=== PATIENT | female | born 1960 | race Caucasian/White ===

== ENCOUNTER 2019-04-20 10:32 | Emergency (ER) | payer OTHER ==
[~2019-04-20] VITALS: Ht 160 cm; Wt 76.7 kg
[2019-04-20 10:39] VITALS: Ht 160 cm; Wt 76.7 kg
[2019-04-20 12:28] LABS: BASOPHIL % 0.4 % (0-2); CARBON DIOXIDE 28.9 mmol/L (21-32); CHLORIDE SERUM 106 mmol/L (98-107); CREATININE SERUM 0.7 mg/dL (0.6-1.0); GFR1 > 60 mL/min; GLUCOSE SERUM 104 mg/dL (74-106); PLATELET COUNT 261 x10^3mcL (130-400); POTASSIUM SERUM 4.6 mmol/L (3.5-5.1); RED CELL DISTRIBUTION WIDTH 14.3 % (11.5-14.5); SODIUM SERUM 140 mmol/L (136-145)
[2019-04-20 12:32] LABS: ALBUMIN 3.4 g/dL (3.4-5.0); ALKALINE PHOSPHATASE 96 U/L (46-116); ALT/SGPT 32 U/L (14-59); AST/SGOT 19 U/L (15-37); BILIRUBIN TOTAL 0.21 mg/dL (0.20-1.00); LIPASE 108 IU/L (73-393)
[2019-04-20 15:26] VITALS: BP 116/74
== END 2019-04-20 15:26 | disposition home or self-care (01) ==
LOC: ED 10:32
PROVIDERS: Emergency Medicine
DX: K21.9 Gastro-esophageal reflux disease without esophagitis (principal); K57.90 Diverticulosis of intestine, part unspecified, without perforation or abscess without bleeding; K44.9 Diaphragmatic hernia without obstruction or gangrene; Z98.890 Other specified postprocedural states
CPT/HCPCS: C9113; J2405; J7030; Q0092

== ENCOUNTER 2020-05-09 15:48 | Emergency (ER) | payer OTHER ==
[~2020-05-09] VITALS: Ht 152.4 cm; Wt 76.7 kg
[2020-05-09 16:03] VITALS: Ht 152.4 cm; Wt 76.7 kg
[2020-05-09] MEDS ORDERED: PRE20 PO (18:57)
[2020-05-09 19:13] VITALS: BP 112/63
== END 2020-05-09 19:13 | disposition home or self-care (01) ==
LOC: ED 15:48
DX: J06.9 Acute upper respiratory infection, unspecified (principal); Z20.828 Contact with and (suspected) exposure to other viral communicable diseases
CPT/HCPCS: 87804; U0003